=== PATIENT | female | born 1950 | race African-American/Black ===

== ENCOUNTER 2018-02-22 09:19 | Emergency (ER) | payer MEDICARE ==
[2018-02-22] MEDS ORDERED: Ibuprofen 200 MG TAB ONE (11:04)
--- NOTE | 2018-02-22 11:41 | RAD ---
RIGHT RIBS 4 VIEWS CHEST 1 VIEW: Date: 02/22/18 HISTORY: Right chest wall injury. FINDINGS: No displaced rib fracture or pneumothorax apparent. Cardiac silhouette and pulmonary vasculature unremarkable. Mediastinum midline with aortic calcificat ion. Calcified granuloma of the right lung is consistent with healed granulomatous disease. IMPRESSION: 1. No acute osseous abnormalities are demonstrated. 2. Atherosclerosis. POS: [facility]
== END 2018-02-22 11:58 | disposition home or self-care (01) ==
LOC: NAV ERS 09:19
DX: M54.6 Pain in thoracic spine (principal); Z79.899 Other long term (current) drug therapy

== ENCOUNTER 2023-11-04 16:50 | Emergency (ER) | payer MEDICARE | END 2023-11-04 18:06 | disposition home or self-care (01) | LOC: NAV ERS 16:50 | DX: S20.212A Contusion of left front wall of thorax, initial encounter (principal); I10 Essential (primary) hypertension; Z79.899 Other long term (current) drug therapy; W18.30XA Fall on same level, unspecified, initial encounter | CPT/HCPCS: 94799 ==